=== PATIENT | female | born 1965 | race Two or more races ===

== ENCOUNTER 2024-09-29 11:57 | Inpatient (IN) | payer OTHER, SELFPAY ==
[~2024-09-29] VITALS: Ht 154.9 cm; Wt 74.3 kg
[2024-09-29] MEDS: SODIUM CHLORIDE 0.9% 2,000 ML IV ONE (12:15)
--- NOTE | 2024-09-29 12:18 | ED.PDOC ---
HPI Comments 59 y.o female presents to the ED for a chief complaint of upper abdominal pain radiating ton the mid-chest, nausea and diarrhea that started 2 days ago. Patient reports pain has now radiated to her abdomen and back, states it is constant and has no alleviating factors. Patient describes diarrhea and some emesis as clear and watery. Patient uses marijuana as her bedtime routine to sleep daily and additionally mentions taking [place] for pain today but had no relief. Patient denies any dysuria, bloody stool, SOB, or recent antibiotic use. Patient has a history of multiple abdominal surgeries which include intestinal blockage, appendectomy, cholecystectomy, and hernia repair x5. Chief Complaint: Chest Pain Time Seen by MD: 12:12 Reviewed Notes: Nurses Notes, Medications, Allergies Allergies: Coded Allergies: NO KNOWN ALLERGIES (Unverified , 09/29/24) Information Source: Patient Mode of Arrival: Ambulatory Severity: Moderate Timing: Days (2) Duration: Since onset Location: Substernal Radiation: Abdomen, Back Quality: Sharp Onset: At Rest PE Risk Factors: None History of: Similar pain in past Modifying Factors: Nothing Associated Signs and Symptoms: Abdominal Pain, N/V, Back Pain Past Medical History Past Medical History (Other): Bowel obstruction Surgical History: Appendectomy, Cholecystectomy, Hernia Repair (5) Surgical History (Other): Surgery for bowel obstruction CARGO INSPECTOR 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: No Pertinent 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 INSPECTOR History Family History Family History: Reviewed,noncontributory to illness Social History Smoker: Non-Smoker Alcohol: Denies ETOH Use Drugs: Marijuana Lives In: Home Constitutional: reports: sweats; denies: chills, diaphoresis, fatigue, fever, malaise, weakness, others EENTM: denies: blurred vision, double vision, ear bleeding, ear discharge, ear drainage, ear pain, ear ringing, eye pain, eye redness, hearing loss, mouth pain, mouth swelling, nasal discharge, nose bleeding, nose congestion, nose pain, photophobia, tearing, throat pain, throat swelling, voice changes, others Respiratory: denies: cough, hemoptysis, orthopnea, SOB at rest, shortness of breath, SOB with excertion, stridor, wheezing, others Cardiovascular: reports: chest pain; denies: dizzy spells, diaphoresis, Dyspnea on exertion, edema, irregular heart beat, left arm pain, lightheadedness, palpitations, PND, syncope, others Gastrointestinal: reports: abdominal pain, diarrhea, nausea; denies: abdomen distended, blood streaked bowels, constipated, dysphagia, difficulty swallowing, hematemesis, melena, poor appetite, poor fluid intake, rectal bleeding, rectal pain, vomiting, others Genitourinary: denies: abnormal vagina bleeding, burning, dyspareunia, dysuria, flank pain, frequency, hematuria, incontinence, pain, , vagina discharge, urgency, others Neurological: denies: dizziness, fainting, headache, left sided numbness, left sided weakness, numbness, paresthesia, pre-existing deficit, right sided numbness, right sided weakness, seizure, speech problems, tingling, tremors, weakness, others Musculoskeletal: reports: back pain; denies: gout, joint pain, joint swelling, muscle pain, muscle stiffness, neck pain, others Integumetry: denies: bruises, change in color, change in hair/nails, dryness, laceration, lesions, lumps, rash, wounds, others Allergic/Immunocompromised: denies: Difficulty Healing, Frequent Infections, Hives, Itching, others Hematologic/Lymphatic: denies: anemia, blood clots, easy bleeding, easy bruising, swollen glands, others Endocrine: denies: excessive hunger, excessive sweating, excessive thirst, excessive urination, flushing, intolerance to cold, intolerance to heat, unexplained weight gain, unexplained weight loss, others Psychiatric: denies: anxiety, bipolar disorder, depression, hopeless, panic disorder, schizophrenia, sleepless, suicidal, others All Other Systems: Reviewed and Negative Physical Exam General Appearance: Moderate Distress HEENT: Other (Pupils and face symmetric. Dry mucous membranes.) Neck: Full Range of Motion, Normal Inspection Respiratory: Lungs Clear, No Accessory Muscle Use, No Respiratory Distress, Normal Breath Sounds Cardiovascular: Bradycardia, No Edema, No JVD Breast Exam: Deferred Gastrointestinal: Diffuse, Soft, Tenderness, Other (Actively vomiting) Genitalia: Deferred Pelvic: Deferred Rectal: Deferred Extremities: Normal inspection, Normal range of motion, Non-tender, No pedal edema Neurologic: Alert (Oriented x4), Normal Affect, Normal Mood, Other (Ambulatory.) Cerebellar Function: NOT DONE Reflexes: NOT DONE Skin: Dry, Normal Color, Warm Lymphatic: NOT DONE EKG EKG : Comments Sinus bradycardia, rate 45, normal intervals, normal axis, normal QRS, nonspecific T change. Was a procedure done? Was a procedure done?: No CP Differential Dx Differential Diagnosis: Other (Bowel obstruction, ileus, colitis, diverticulitis, UTI, gastroenteritis, gastritis, ischemic bowel, among others) Differential Diagnosis: N/A Differential Diagnosis: Angina, Aortic dissection, Chest Wall Pain, Costochondritis, Esophageal reflux/spasm, Gastritis, Myocardial Infarction, Pericarditis X-Ray, Labs, Meds, VS Vital Signs Date Time Temp Pulse Resp B/P (MAP) Pulse Ox O2 Delivery O2 Flow Rate FiO2 09/29/24 19:25 98.6 54 13 118/69 (85) 100 98.6 09/29/24 18:22 44 16 118/69 (85) 99 09/29/24 16:00 44 16 121/67 (85) 100 09/29/24 16:00 44 09/29/24 15:10 78 20 111/60 09/29/24 14:57 60 15 122/72 (89) 100 09/29/24 14:26 53 12 99 Nasal Cannula* 2 28 09/29/24 12:48 54 16 145/69 09/29/24 12:23 97.6 51 24 150/78 (102) 100 97.6 09/29/24 12:22 50 26 145/69 (94) 100 09/29/24 12:00 45 Lab Test 09/29/24 17:05 09/29/24 14:28 09/29/24 13:20 09/29/24 12:36 Range/Units Urine Color Yellow Yellow Urine Clarity Clear Clear Urine pH 6.0 5.0-9.0 Urine Specific [place] 1.015 1.001-1.035 Urine Protein Trace H Negative Urine Ketones Negative Negative Urine Blood Negative Negative /uL Urine Nitrite Negative Negative Urine Bilirubin Negative Negative Urine Urobilinogen Normal Negative mg/dL Urine Leukocyte Esterase Negative Negative /uL Urine RBC 1 0 - 4 /hpf Urine Microscopic WBC 1 0-5 /HPF Urine Squamous Epithelial Cells Few <5 /hpf Urine Bacteria Few H None Seen /hpf Urine Mucus Few None Seen Urine Glucose Normal Normal mg/dL Lactic Acid Level 0.7 2.3 *H 0.4-2.0 mmol/L Troponin I High Sensitivity < 3 L </=34 ng/L Test 09/29/24 12:06 Range/Units White Blood Count 3.9 L 4.4-10.8 10^3/uL Red Blood Count 4.77 4.0-5.20 10^6/uL Hemoglobin 14.9 12.2-16.2 g/dL Hematocrit 42.4 36.0-46.0 % Mean Corpuscular Volume 88.9 80.0-100.0 fL Mean Corpuscular Hemoglobin 31.2 28.0-32.0 pg Mean Corpuscular Hemoglobin Concent 35.1 32.0-36.0 g/dL Red Cell Distribution Width 13.4 11.8-14.3 % Platelet Count 260 140-450 10^3/uL Mean Platelet Volume 8.8 6.9-10.8 fL Neutrophils (%) (Auto) 53.4 37.0-80.0 % Lymphocytes (%) (Auto) 34.8 10.0-50.0 % Monocytes (%) (Auto) 11.1 0.0-12.0 % Eosinophils (%) (Auto) 0.1 0.0-7.0 % Basophils (%) (Auto) 0.6 0.0-2.0 % Neutrophils # (Auto) 2.1 1.6-8.6 10 ^3/uL Lymphocytes # (Auto) 1.4 0.4-5.4 10 ^3/uL Monocytes # (Auto) 0.4 0-1.3 10 ^3/uL Eosinophils # (Auto) 0 0-0.8 10 ^3/uL Basophils # (Auto) 0 0-0.2 10 ^3/uL Nucleated Red Blood Cells 0.3 % Sodium Level 143 136-145 mmol/L Potassium Level 3.0 L 3.5-5.1 mmol/L Chloride Level 108 H 98-107 mmol/L Carbon Dioxide Level 18 L 20-31 mmol/L Anion Gap 17 H 5-15 Blood Urea Nitrogen 16 9-23 mg/dL Creatinine 0.89 0.550-1.02 mg/dL Glomerular Filtration Rate Calc 75 >90 mL/min BUN/Creatinine Ratio 18.0 10.0-20.0 Serum Glucose 121 H 74-106 mg/dL Calcium Level 10.5 H 8.7-10.4 mg/dL Total Bilirubin 0.6 0.2-1.0 mg/dL Aspartate Amino Transferase (AST) 84 H 13-40 U/L Alanine Aminotransferase (ALT) 31 7-40 U/L Alkaline Phosphatase 48 46-116 U/L Troponin I High Sensitivity < 3 L </=34 ng/L B-Type Natriuretic Peptide 33.57 0-100 pg/mL Total Protein 7.4 5.7-8.2 g/dL Albumin 5.0 H 3.2-4.8 g/dL Lipase 34 12-53 U/L Current Medications Medications (Trade) Dose Ordered Sig/Yulia Route Start Time Stop Time Status Last Admin Morphine Sulfate 4 mg ONCE ONCE IV 09/29/24 12:15 09/29/24 12:16 DC 09/29/24 12:48 Ondansetron HCl (Zofran) 4 mg ONCE ONCE IV 09/29/24 12:15 09/29/24 12:16 DC 09/29/24 12:48 Pantoprazole Sodium (Protonix) 40 mg ONCE ONCE IV 09/29/24 12:15 09/29/24 12:16 DC 09/29/24 12:48 Sodium Chloride 2,000 ml @ 1,000 mls/hr Q2H ONCE IV 09/29/24 12:15 09/29/24 14:14 DC 09/29/24 12:15 Potassium Bicarbonate (Klor-Con/Ef) 50 meq ONCE ONCE PO 09/29/24 14:30 09/29/24 14:32 DC 09/29/24 14:52 Ceftriaxone Sodium 50 ml @ 100 mls/hr ONCE ONCE IV 09/29/24 16:30 09/29/24 16:59 DC 09/29/24 16:43 Metronidazole 100 ml @ 100 mls/hr ONCE ONCE IV 09/29/24 16:30 09/29/24 17:29 DC 09/29/24 17:20 PROCEDURE(s): ABPL - CT AB PEL WO CON-NO ORAL OR IV REASON: abd pain, n/v, watery stool, h/o sbo ORDER NUMBER(s): [id number], ACCESSION NUMBER(s): [id number] CT CT AB PEL WO CON-NO ORAL OR IV INDICATION: abd pain, n/v, watery stool, h/o sbo EXAM DATE: 09/29/2024 01:02 PM COMPARISON: None RADIATION DOSE: CTDIvol: 9 mGy, DLP: 435 mGy*cm PROCEDURE: Helical CT images were obtained of the abdomen and pelvis without IV contrast Sagittal and coronal reconstructions are provided. ORAL CONTRAST: None. ADDITIONAL IMAGES / REFORMATS: None All CT scans at this medical facility are p erformed using dose modulation techniques as appropriate to a performed exam including the following: Automated exposure control was utilized; adjustment of the MA and/or KV according to patient size; and use of iterative reconstruction technique. FINDINGS: LUNG BASE: Normal. LIVER: Normal. GALLBLADDER AND BILIARY TREE: Cholecystectomy clips are seen. No intra- or extrahepatic biliary ductal dilation. PANCREAS: Normal. SPLEEN: Normal. BOWEL: There is a stomach containing hiatal hernia. Liquid filled colon Can be seen with diarrhea. The appendix is not visualized. ADRENALS: Normal. KIDNEYS AND URETER: Tiny non obstructive bilateral kidney stones are seen. BLADDER: Normal. REPRODUCTIVE ORGANS: The endometrium is thickened to 3.8 cm. Consider a pelvic ultrasound to rule out malignancy. LYMPH NODES:No lymphadenopathy. PERITONEUM: No ascites or free air. No other fluid collection. VESSELS: Scattered atherosclerotic calcifications are noted. RETROPERITONEUM: Normal. ABDOMINAL WALL: Central abdominal wall hernia repair with mesh material is seen. BONES: Scattered osseous degenerative changes are noted. IMPRESSION: No acute intraabdominal abnormality. Liquid filled colon can be seen with diarrhea. The endometrium is thickened to 3.8 cm. Consider a pelvic ultrasound to rule out malignancy. X-Ray, Labs, Meds, VS Comment 59-year-old female with a history of bowel obstruction complaining of diffuse abdominal pain, nausea, vomiting and watery stool Vitals remarkable for heart rate 45, respiratory rate 26, BP 145/69 Exam remarkable for diffuse abdominal tenderness, active vomiting Rhythm strip independently interpreted by me: Sinus bradycardia, rate 45, no ectopy. CT abdomen and pelvis: IMPRESSION: No acute intraabdominal abnormality. Liquid filled colon can be seen with diarrhea. The endometrium is thickened to 3.8 cm. Consider a pelvic ultrasound to rule out malignancy. CBC unremarkable, CMP remarkable for potassium 3, chloride 108, CO2 18, lactic 2.3, BNP and troponin negative, lipase normal Patient treated with the following in the ED: 2 L 0.9 normal saline IV bolus, Zofran 4 mg IV, morphine 4 mg IV, Protonix 40 mg IV, effervescent potassium 50 mEq p.o., Rocephin 1 g IV, Flagyl 500 mg IV On re-evaluation, patient states abd pain and nausea symptoms have somewhat improved but are still present. Chest pain has resolved. Vitals were stable. Plan is to admit the patient for pain and emesis control and possible GI evaluation Time of 1ST Reevaluation: 12:30 Reevaluation 1ST: Improved Patient Education/Counseling: Diagnosis, Treatment, Prognosis Family Education/Counseling: No Family Present Sepsis Sepsis Reasesment Focused Exam Orders: Laboratory Tests 09/29/24 12:36: Lactic Acid Level 2.3 09/29/24 14:28: Lactic Acid Level 0.7 Departure 1 Departure Time of Disposition: 15:45 Impression: Primary Impression: Abdominal pain Qualified Codes: R10.9 - Unspecified abdominal pain Additional Impressions: Vomiting and diarrhea Electrolyte imbalance Disposition: ADMITTED INPATIENT Admit to: Med Surg Condition: Fair Critical Care Note Critical Care Time?: No Stability Stability form required: No Heart Score Heart Score: Heart Score Response (Comments) Value History Slightly Suspicious 0 EKG Repolarization Disturb 1 Age 45-64 1 Risk Factors 1 or 2 risk factors 1 Troponin Normal limit 0 Total 3 I personally scribed for JOSE DOUGLAS MD ([email or web address]) on 09/29/24 at 12:18. Electronically submitted by Silvia Maurer ([facility]). I personally scribed for JOSE DOUGLAS MD ([email or web address]) on 09/29/24 at 13:54. Electronically submitted by Silvia Maurer ([facility]). JOSE DOUGLAS MD Sep 29, 2024 12:18
[2024-09-29 12:20] LABS: Basophils # (auto) 0 10 ^3/uL (0-0.2); Basophils % (auto) 0.6 % (0.0-2.0); Eosinophils # (auto) 0 10 ^3/uL (0-0.8); Eosinophils % (auto) 0.1 % (0.0-7.0); Hematocrit 42.4 % (36.0-46.0); Hemoglobin 14.9 g/dL (12.2-16.2); Lymphocytes # (auto) 1.4 10 ^3/uL (0.4-5.4); Lymphocytes % (auto) 34.8 % (10.0-50.0); Mean Corpuscular Hemoglobin 31.2 pg (28.0-32.0); Mean Corpuscular Hgb Conc. 35.1 g/dL (32.0-36.0); Mean Corpuscular Volume 88.9 fL (80.0-100.0); Monocytes # (auto) 0.4 10 ^3/uL (0-1.3); Monocytes % (auto) 11.1 % (0.0-12.0); Neutrophils # (auto) 2.1 10 ^3/uL (1.6-8.6); Neutrophils % (auto) 53.4 % (37.0-80.0); Nucleated Red Blood Cells % 0.3 %; Platelet Count (auto) 260 10^3/uL (140-450); Red Blood Cells 4.77 10^6/uL (4.0-5.20); Red Cell Distribution Width 13.4 % (11.8-14.3); White Blood Cell 3.9 10^3/uL (4.4-10.8)
--- NOTE | 2024-09-29 12:35 | ECG ---
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
[2024-09-29] MEDS: PANTOPRAZOLE 40 MG/10 ML VIAL INJ IV ONE (12:48)
[2024-09-29] MEDS: MORPHINE SULFATE 4 MG/ML SYR/VIAL IV ONE (12:48)
[2024-09-29] MEDS: ONDANSETRON HCL 4 MG/2 ML VIAL IV ONE (12:48)
[2024-09-29 13:07] LABS: Lactic Acid w/Reflex 2.3 mmol/L (0.4-2.0)
[2024-09-29 13:35] LABS: Alanine Aminotransferase 31 U/L (7-40); Alkaline Phosphatase 48 U/L (46-116); Anion Gap 17 (5-15); Blood Urea Nitrogen 16 mg/dL (9-23); Sodium 143 mmol/L (136-145); Total Protein 7.4 g/dL (5.7-8.2)
[2024-09-29 13:36] LABS: Aspartate Aminotransferase 84 U/L (13-40); Bilirubin, Total 0.6 mg/dL (0.2-1.0); Calcium 10.5 mg/dL (8.7-10.4); Carbon Dioxide 18 mmol/L (20-31); Chloride 108 mmol/L (98-107); Glucose 121 mg/dL (74-106)
--- NOTE | 2024-09-29 13:38 | DVH ---
CT CT AB PEL WO CON-NO ORAL OR IV INDICATION: abd pain, n/v, watery stool, h/o sbo EXAM DATE: 09/29/2024 01:02 PM COMPARISON: None RADIATION DOSE: CTDIvol: 9 mGy, DLP: 435 mGy*cm PROCEDURE: Helical CT images were obtained of the abdomen and pelvis without IV contrast Sagittal and coronal reconstructions are provided. ORAL CONTRAST: None. ADDITIONAL IMAGES / REFORMATS: None All C T scans at this medical facility are performed using dose modulation techniques as appropriate to a p erformed exam including the following: Automated exposure control was utilized; adjustment of the MA and/or KV according to patient size; and use of iterative reconstruction technique. FINDINGS: LUNG BASE: Normal. LIVER: Normal. GALLBLADDER AND BILIARY TREE: Cholecystectomy clips are seen. No intra- or extrahepatic biliary ducta l dilation. PANCREAS: Normal. SPLEEN: Normal. BOWEL: There is a stomach containing hiatal hernia. Liquid filled colon Can be seen with diarrhea. Th e appendix is not visualized. ADRENALS: Normal. KIDNEYS AND URETER: Tiny non obstructive bilateral kidney stones are seen. BLADDER: Normal. REPRODUCTIVE ORGANS: The endometrium is thickened to 3.8 cm. Consider a pelvic ultrasound to rule out malignancy. LYMPH NODES:No lymphadenopathy. PERITONEUM: No ascites or free air. No other fluid collection. VESSELS: Scattered atherosclerotic calcifications are noted. RETROPERITONEUM: Normal. ABDOMINAL WALL: Central abdominal wall hernia repair with mesh material is seen. BONES: Scattered osseous degenerative changes are noted. IMPRESSION: No acute intraabdominal abnormality. Liquid filled colon can be seen with diarrhea. The endometrium is thickened to 3.8 cm. Consider a pelvic ultrasound to rule out malignancy.
[2024-09-29 14:26] VITALS: PULSE 53; RESP 12; O2SAT 99
[2024-09-29] MEDS: POTASSIUM EFFERVESENT TAB 25 MEQ PO ONE (14:52)
[2024-09-29] MEDS: cefTRIAXone 1GM/50ML D5W 50 ML IV ONE (16:43)
[2024-09-29] MEDS: metroNIDAZOLE 500MG/100ML 100 ML IV ONE (17:20)
[2024-09-29 17:40] LABS: Urine Bacteria FEW /hpf (None Seen); Urine Blood Negative /uL (Negative); Urine Clarity Clear (Clear); Urine Color Yellow (Yellow); Urine Mucus FEW (None Seen); Urine Protein, UAD TRACE (Negative); Urine Specific Gravity 1.015 (1.001-1.035); Urine Squamous Epithelial Cell FEW /hpf (<5); Urine Urobilinogen Normal (Negative); Urine WBC 1 /HPF (0-5)
[2024-09-29] MEDS ORDERED: MORPHINE SULFATE INJ 2 MG/ml SYRG IV PRN (19:30)
[2024-09-29] MEDS ORDERED: HYDROcodone-ACET 5/325MG TAB PO PRN (19:30)
[2024-09-29] MEDS: metroNIDAZOLE 500MG/100ML 100 ML IV SCH (23:00)
[2024-09-29] MEDS: ONDANSETRON HCL 4 MG/2 ML VIAL IV PRN (23:00)
[2024-09-29] MEDS: ACETAMINOPHEN 325 MG TAB PO PRN (23:31)
[2024-09-30] VITALS (9 sets, daily range): BP systolic 121–134; BP diastolic 67–80; PULSE 46–52; RESP 15–19; TEMP 97.6–98.8; O2SAT 95–100
--- NOTE | 2024-09-30 04:36 | DVHHP2 ---
History of Present Illness Reason for Visit: Abdominal pain History of Present Illness 59-year-old female presents for evaluation of abdominal pain. Patient reports a two day history of epigastric abdominal pain with associated nausea and diarrhea. Reports occasional chills. Denies dysuria or hematuria. Past Medical History Hypertension Past Surgical History Cholecystectomy, appendectomy, hernia repair Family History Noncontributory Smoke: No ALCOHOL: none Drugs: Marijuana Review of Systems Review of Systems Review of systems are currently negative otherwise addressed in HPI. Allergies: Coded Allergies: NO KNOWN ALLERGIES (Unverified , 09/29/24) Medications Current Medications Medications Dose Ordered Sig/Yulia Route Start Time Stop Time Status Last Admin Dose Admin Metronidazole 100 ml @ 100 mls/hr Q8HR IV 09/29/24 22:00 09/29/24 23:00 100 MLS/HR Pantoprazole Sodium 40 mg DAILY IV 09/30/24 10:00 Acetaminophen/ Hydrocodone Bitart 1 tab Q4HP PRN PO 09/29/24 19:30 Ondansetron HCl 4 mg Q4HP PRN IV 09/29/24 19:30 09/29/24 23:00 4 MG Acetaminophen 650 mg Q6HP PRN PO 09/29/24 19:30 09/29/24 23:31 650 MG Morphine Sulfate 2 mg Q6HPRN PRN IV 09/29/24 19:30 Exam Vital Signs Vital Signs Date Time Temp Pulse Resp B/P (MAP) Pulse Ox O2 Delivery O2 Flow Rate FiO2 09/30/24 01:39 Room Air* 0 21 09/30/24 01:39 97.6 52 18 123/71 (88) 97 97.6 Exam Gen: 59-year-old female in mild distress Skin: Warm, dry, normal color and texture, no rash. HEENT: Normocephalic atraumatic, mucous membranes moist and pink. Neck: Cervical and supraclavicular nodes normal without enlargement, trachea is midline, thyroid gland is normal without masses. Pulmonary: Clear to auscultation and percussion bilaterally. Cardiac: Regular rate and rhythm. No murmur Abdomen: Soft, nontender, nondistended, bowel sounds present all 4 quadrants, no guarding, no rigidity, no organomegaly. Extremities: No cyanosis, clubbing, no edema Neuro: Cranial nerves II through XII grossly intact, normal affect and speech, no focal motor deficits. Labs/Xrays ORDERING PHYSICIAN: JOSE DOUGLAS MD PROCEDURE(s): ABPL - CT AB PEL WO CON-NO ORAL OR IV REASON: abd pain, n/v, watery stool, h/o sbo ORDER NUMBER(s): [id number], ACCESSION NUMBER(s): [id number] CT CT AB PEL WO CON-NO ORAL OR IV INDICATION: abd pain, n/v, watery stool, h/o sbo EXAM DATE: 09/29/2024 01:02 PM COMPARISON: None RADIATION DOSE: CTDIvol: 9 mGy, DLP: 435 mGy*cm PROCEDURE: Helical CT images were obtained of the abdomen and pelvis without IV contrast Sagittal and coronal reconstructions are provided. ORAL CONTRAST: None. ADDITIONAL IMAGES / REFORMATS: None All CT scans at this medical facility are p erformed using dose modulation techniques as appropriate to a performed exam including the following: Automated exposure control was utilized; adjustment of the MA and/or KV according to patient size; and use of iterative reconstruction technique. FINDINGS: LUNG BASE: Normal. LIVER: Normal. GALLBLADDER AND BILIARY TREE: Cholecystectomy clips are seen. No intra- or extrahepatic biliary ductal dilation. PANCREAS: Normal. SPLEEN: Normal. BOWEL: There is a stomach containing hiatal hernia. Liquid filled colon Can be seen with diarrhea. The appendix is not visualized. ADRENALS: Normal. KIDNEYS AND URETER: Tiny non obstructive bilateral kidney stones are seen. BLADDER: Normal. REPRODUCTIVE ORGANS: The endometrium is thickened to 3.8 cm. Consider a pelvic ultrasound to rule out malignancy. LYMPH NODES:No lymphadenopathy. PERITONEUM: No ascites or free air. No other fluid collection. VESSELS: Scattered atherosclerotic calcifications are noted. RETROPERITONEUM: Normal. ABDOMINAL WALL: Central abdominal wall hernia repair with mesh material is seen. BONES: Scattered osseous degenerative changes are noted. IMPRESSION: No acute intraabdominal abnormality. Liquid filled colon can be seen with diarrhea. The endometrium is thickened to 3.8 cm. Consider a pelvic ultrasound to rule out malignancy. Labs Test 09/29/24 17:05 09/29/24 14:28 09/29/24 13:20 09/29/24 12:06 Range/Units Urine Color Yellow Yellow Urine Clarity Clear Clear Urine pH 6.0 5.0-9.0 Urine Specific [place] 1.015 1.001-1.035 Urine Protein Trace H Negative Urine Ketones Negative Negative Urine Blood Negative Negative /uL Urine Nitrite Negative Negative Urine Bilirubin Negative Negative Urine Urobilinogen Normal Negative mg/dL Urine Leukocyte Esterase Negative Negative /uL Urine RBC 1 0 - 4 /hpf Urine Microscopic WBC 1 0-5 /HPF Urine Squamous Epithelial Cells Few <5 /hpf Urine Bacteria Few H None Seen /hpf Urine Mucus Few None Seen Urine Glucose Normal Normal mg/dL Lactic Acid Level 0.7 0.4-2.0 mmol/L Troponin I High Sensitivity < 3 L </=34 ng/L White Blood Count 3.9 L 4.4-10.8 10^3/uL Red Blood Count 4.77 4.0-5.20 10^6/uL Hemoglobin 14.9 12.2-16.2 g/dL Hematocrit 42.4 36.0-46.0 % Mean Corpuscular Volume 88.9 80.0-100.0 fL Mean Corpuscular Hemoglobin 31.2 28.0-32.0 pg Mean Corpuscular Hemoglobin Concent 35.1 32.0-36.0 g/dL Red Cell Distribution Width 13.4 11.8-14.3 % Platelet Count 260 140-450 10^3/uL Mean Platelet Volume 8.8 6.9-10.8 fL Neutrophils (%) (Auto) 53.4 37.0-80.0 % Lymphocytes (%) (Auto) 34.8 10.0-50.0 % Monocytes (%) (Auto) 11.1 0.0-12.0 % Eosinophils (%) (Auto) 0.1 0.0-7.0 % Basophils (%) (Auto) 0.6 0.0-2.0 % Neutrophils # (Auto) 2.1 1.6-8.6 10 ^3/uL Lymphocytes # (Auto) 1.4 0.4-5.4 10 ^3/uL Monocytes # (Auto) 0.4 0-1.3 10 ^3/uL Eosinophils # (Auto) 0 0-0.8 10 ^3/uL Basophils # (Auto) 0 0-0.2 10 ^3/uL Nucleated Red Blood Cells 0.3 % Sodium Level 143 136-145 mmol/L Potassium Level 3.0 L 3.5-5.1 mmol/L Chloride Level 108 H 98-107 mmol/L Carbon Dioxide Level 18 L 20-31 mmol/L Anion Gap 17 H 5-15 Blood Urea Nitrogen 16 9-23 mg/dL Creatinine 0.89 0.550-1.02 mg/dL Glomerular Filtration Rate Calc 75 >90 mL/min BUN/Creatinine Ratio 18.0 10.0-20.0 Serum Glucose 121 H 74-106 mg/dL Calcium Level 10.5 H 8.7-10.4 mg/dL Total Bilirubin 0.6 0.2-1.0 mg/dL Aspartate Amino Transferase (AST) 84 H 13-40 U/L Alanine Aminotransferase (ALT) 31 7-40 U/L Alkaline Phosphatase 48 46-116 U/L B-Type Natriuretic Peptide 33.57 0-100 pg/mL Total Protein 7.4 5.7-8.2 g/dL Albumin 5.0 H 3.2-4.8 g/dL Lipase 34 12-53 U/L Assessment/Plan Assessment/Plan Assessment Acute abdominal pain Questionable gastroenteritis Electrolyte imbalance Plan Admit the patient to [facility] to the hospitalist [place] Clear liquid diet GI consult Pain management Continue treatment per orders. 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 CONS 09/29/24 Transmitted 19:27 Basic Metabolic Panel LAB 09/30/24 Logged 04:00 Admit ADMIT 09/29/24 Transmitted 19:27 Hydrocodone-Acet PHA 09/29/24 In Process 5/325mg Tab ([place] 19:30 Ondansetron Hcl PHA 09/29/24 In Process (Zofran) 19:30 Complete Blood Count LAB 09/30/24 Logged 04:00 Condition: Stable GRAHAM 09/29/24 In Process 19:27 Acetaminophen Tablet PHA 09/29/24 In Process (Tylenol Tablet) 19:30 Clear Liq Diet DIET 09/30/24 Transmitted Breakfast Bedrest With Bathroom GRAHAM 09/29/24 In Process Privileg 19:27 Morphine Sulfate PHA 09/29/24 In Process Injection 19:30 Stool Bacterial DEXTER 09/29/24 Logged Culture 19:27 Date of Service: Sep 29, 2024 Billing Provider: KOREY SEPULVEDA Common Visit Codes: [id number] INP/OBS CARE (MOD) KOREY SEPULVEDA Sep 30, 2024 04:36
[2024-09-30 06:51] LABS: Basophils # (auto) 0 10 ^3/uL (0-0.2); Basophils % (auto) 0.4 % (0.0-2.0); Eosinophils # (auto) 0 10 ^3/uL (0-0.8); Eosinophils % (auto) 0.1 % (0.0-7.0); Hematocrit 40.8 % (36.0-46.0); Hemoglobin 14.1 g/dL (12.2-16.2); Lymphocytes # (auto) 0.6 10 ^3/uL (0.4-5.4); Lymphocytes % (auto) 23.4 % (10.0-50.0); Mean Corpuscular Hgb Conc. 34.5 g/dL (32.0-36.0); Mean Corpuscular Volume 89.8 fL (80.0-100.0); Monocytes # (auto) 0.3 10 ^3/uL (0-1.3); Monocytes % (auto) 12.5 % (0.0-12.0); Neutrophils # (auto) 1.6 10 ^3/uL (1.6-8.6); Neutrophils % (auto) 63.6 % (37.0-80.0); Nucleated Red Blood Cells % 0.1 %; Platelet Count (auto) 202 10^3/uL (140-450); Red Blood Cells 4.55 10^6/uL (4.0-5.20); Red Cell Distribution Width 13.4 % (11.8-14.3); White Blood Cell 2.5 10^3/uL (4.4-10.8)
[2024-09-30 07:03] LABS: Potassium 3.5 mmol/L (3.5-5.1); Sodium 143 mmol/L (136-145)
[2024-09-30 07:04] LABS: Anion Gap 10 (5-15); Calcium 9.8 mg/dL (8.7-10.4); Carbon Dioxide 26 mmol/L (20-31)
[2024-09-30 07:07] LABS: Chloride 107 mmol/L (98-107)
[2024-09-30 07:09] LABS: BUN/Creatinine Ratio 10.8 (10.0-20.0); Blood Urea Nitrogen 10 mg/dL (9-23); Glucose 97 mg/dL (74-106)
[2024-09-30] MEDS: PANTOPRAZOLE 40 MG/10 ML VIAL INJ IV SCH (10:01)
--- NOTE | 2024-09-30 11:04 | DVHPN2 ---
Progress Note Date Seen: Sep 30, 2024 Medical Necessity Reason Pt with a Central, PICC or Fol: No Subjective Patient reports: No new complaints Review of Systems: HEENT:Normal, CVS:Normal, RESPIRATORY:Normal, GI:Normal, :Normal, MSK:Normal, NEURO:Normal Objective vital signs Vital Sign Date Time Temp Pulse Resp B/P (MAP) Pulse Ox O2 Delivery O2 Flow Rate FiO2 09/30/24 05:00 97.7 48 17 134/80 (98) 96 97.7 09/30/24 01:39 Room Air* 0 21 Total Intake and Output 09/29/24 09/29/24 09/30/24 15:00 23:00 07:00 Intake Total 2000 ml 200 ml 400 ml Balance 2000 ml 200 ml 400 ml medications Current Medications Medications Dose Ordered Sig/Yulia Route Start Time Stop Time Status Last Admin Dose Admin Metronidazole 100 ml @ 100 mls/hr Q8HR IV 09/29/24 22:00 09/30/24 05:24 100 MLS/HR Pantoprazole Sodium 40 mg DAILY IV 09/30/24 10:00 09/30/24 10:01 40 MG Acetaminophen/ Hydrocodone Bitart 1 tab Q4HP PRN PO 09/29/24 19:30 Ondansetron HCl 4 mg Q4HP PRN IV 09/29/24 19:30 09/30/24 05:32 4 MG Acetaminophen 650 mg Q6HP PRN PO 09/29/24 19:30 09/29/24 23:31 650 MG Morphine Sulfate 2 mg Q6HPRN PRN IV 09/29/24 19:30 Examination: GENERAL:Normal, HEENT:Normal, NECK:Normal, LUNGS:Normal, CVS:Normal, ABDOMEN:Normal, MSK:Normal, SKIN:Normal, NEURO:Normal, :Normal laboratory and microbiology Laboratory Tests 09/30/24 06:19 Test 09/30/24 06:19 Range/Units Serum Glucose 97 74-106 mg/dL Problem List/Assessment/Plan Problem List/Assessment/Plan #1 diarrhea: advance diet #2 obesity #3 htn #4 endometrial thickening: pelvic usg #5 hypokalemia: replaced advance care planning- full code- time spent 18 mins Plan discussed with: Patient My Orders My Orders Orders - KOREY HERNANDEZ MD Procedure Category Date Status Time Full Liq Diet DIET 09/30/24 Transmitted Lunch Date of Service: Sep 30, 2024 Billing Provider: KOREY HERNANDEZ MD Common Visit Codes: [id number] INP/OBS CARE(HIGH) Secondary Visit Codes: [id number] CARE PLAN 30 MINUTES KOREY HERNANDEZ MD Sep 30, 2024 11:04
[2024-09-30] MEDS: SODIUM CHLORIDE 0.9% 1,000 ML IV SCH (12:03)
--- NOTE | 2024-09-30 13:05 | DVH ---
INDICATION: endometrial thickening TECHNIQUE: Multiple real-time grayscale transabdominal and transvaginal sonographic images along wit h color and duplex Doppler of the uterus and ovaries were obtained. COMPARISON: None FINDINGS: The uterus measures 8.1 x 4.3 x 5.7 cm. Small amount of fluid and debris in the endometr ial canal. Bilateral ovaries are not well visualized due to obscuration from bowel gas. IMPRESSION: Small amount of fluid and debris in the endometrial canal. Correlate with gynecologic exam.
--- NOTE | 2024-09-30 18:13 | DVHINCON2 ---
Date of service: Sep 30, [address] Simental Reason for Consultation Abdominal pain nausea diarrhea History of Present Illness This 59-year-old female presented to the emergency room with complaints of abdominal pain radiating to the chest as well as nausea and diarrhea started about prior to admission No hematemesis no melena Patient has history of marijuana routinely sleep Some little diarrhea no hematemesis no melena Past Medical History Bowel obstruction for which she had surgery appendectomy cholecystectomy and hernia repair 5 times Past Surgical History Appendectomy cholecystectomy hernia repair Family History: Patient reports no known family medical history. Family History Noncontributory Social History Denies smoking or drinking Allergies: Coded Allergies: NO KNOWN ALLERGIES (Unverified , 09/29/24) Current Medications Current Medications Medications (Trade) Dose Ordered Sig/Yulai Route PRN Reason Start Time Stop Time Status Last Admin Metronidazole 100 ml @ 100 mls/hr Q8HR IV 09/29/24 22:00 09/30/24 11:02 DC 09/30/24 05:24 Pantoprazole Sodium (Protonix) 40 mg DAILY IV 09/30/24 10:00 09/30/24 10:01 Acetaminophen/ Hydrocodone Bitart ([place] 5/325MG Tab) 1 tab Q4HP PRN PO MODERATE PAIN (4-6 PAIN SCALE) 09/29/24 19:30 Ondansetron HCl (Zofran) 4 mg Q4HP PRN IV NAUSEA / VOMITING 09/29/24 19:30 09/30/24 05:32 Acetaminophen (Tylenol Tablet) 650 mg Q6HP PRN PO PAIN SCALE 1-3 OR TEMP>100.4 09/29/24 19:30 09/29/24 23:31 Morphine Sulfate 2 mg Q6HPRN PRN IV SEVERE PAIN (7-10 PAIN SCALE) 09/29/24 19:30 Sodium Chloride 1,000 ml @ 60 mls/hr [id number] IV 09/30/24 11:00 09/30/24 12:03 Review of Systems Noncontributory Vital Signs Vital Signs Date Time Temp Pulse Resp B/P (MAP) Pulse Ox O2 Delivery O2 Flow Rate FiO2 09/30/24 17:00 98.8 48 16 134/72 (92) 97 98.8 09/30/24 08:00 Room Air* 0 21 Physical Exam Moderately built and nourished female in no acute distress Vitals stable Lungs are clear Vascular unremarkable Abdomen is soft mild tenderness in the epigastrium no rigidity no guarding no masses Bowel sounds normal Extremities no edema Neuro intact Labs/Diagnostic Data Labs Test 09/30/24 06:19 09/29/24 17:05 09/29/24 14:28 09/29/24 13:20 Range/Units White Blood Count 2.5 L 4.4-10.8 10^3/uL Red Blood Count 4.55 4.0-5.20 10^6/uL Hemoglobin 14.1 12.2-16.2 g/dL Hematocrit 40.8 36.0-46.0 % Mean Corpuscular Volume 89.8 80.0-100.0 fL Mean Corpuscular Hemoglobin 31.0 28.0-32.0 pg Mean Corpuscular Hemoglobin Concent 34.5 32.0-36.0 g/dL Red Cell Distribution Width 13.4 11.8-14.3 % Platelet Count 202 140-450 10^3/uL Mean Platelet Volume 9.4 6.9-10.8 fL Neutrophils (%) (Auto) 63.6 37.0-80.0 % Lymphocytes (%) (Auto) 23.4 10.0-50.0 % Monocytes (%) (Auto) 12.5 H 0.0-12.0 % Eosinophils (%) (Auto) 0.1 0.0-7.0 % Basophils (%) (Auto) 0.4 0.0-2.0 % Neutrophils # (Auto) 1.6 1.6-8.6 10 ^3/uL Lymphocytes # (Auto) 0.6 0.4-5.4 10 ^3/uL Monocytes # (Auto) 0.3 0-1.3 10 ^3/uL Eosinophils # (Auto) 0 0-0.8 10 ^3/uL Basophils # (Auto) 0 0-0.2 10 ^3/uL Nucleated Red Blood Cells 0.1 % Sodium Level 143 136-145 mmol/L Potassium Level 3.5 3.5-5.1 mmol/L Chloride Level 107 98-107 mmol/L Carbon Dioxide Level 26 20-31 mmol/L Anion Gap 10 5-15 Blood Urea Nitrogen 10 9-23 mg/dL Creatinine 0.93 0.550-1.02 mg/dL Glomerular Filtration Rate Calc 71 >90 mL/min BUN/Creatinine Ratio 10.8 10.0-20.0 Serum Glucose 97 74-106 mg/dL Calcium Level 9.8 8.7-10.4 mg/dL Urine Color Yellow Yellow Urine Clarity Clear Clear Urine pH 6.0 5.0-9.0 Urine Specific [place] 1.015 1.001-1.035 Urine Protein Trace H Negative Urine Ketones Negative Negative Urine Blood Negative Negative /uL Urine Nitrite Negative Negative Urine Bilirubin Negative Negative Urine Urobilinogen Normal Negative mg/dL Urine Leukocyte Esterase Negative Negative /uL Urine RBC 1 0 - 4 /hpf Urine Microscopic WBC 1 0-5 /HPF Urine Squamous Epithelial Cells Few <5 /hpf Urine Bacteria Few H None Seen /hpf Urine Mucus Few None Seen Urine Glucose Normal Normal mg/dL Lactic Acid Level 0.7 0.4-2.0 mmol/L Troponin I High Sensitivity < 3 L </=34 ng/L Test 09/29/24 12:06 Range/Units Total Bilirubin 0.6 0.2-1.0 mg/dL Aspartate Amino Transferase (AST) 84 H 13-40 U/L Alanine Aminotransferase (ALT) 31 7-40 U/L Alkaline Phosphatase 48 46-116 U/L B-Type Natriuretic Peptide 33.57 0-100 pg/mL Total Protein 7.4 5.7-8.2 g/dL Albumin 5.0 H 3.2-4.8 g/dL Lipase 34 12-53 U/L Microbiology Date/Time Source Procedure Growth Status 09/30/24 06:26 Stool Stool Culture - Preliminary Resulted 09/30/24 06:26 Stool Shiga Toxin I & II - Final Resulted 09/29/24 12:36 Blood Blood Culture - Preliminary NO GROWTH AFTER 24 HOURS OF INCUBATION. Resulted Assessment 59-year-old with history of abdominal pains nausea anorexia history of although problems appendectomy cholecystectomy hernia surgery as well as bowel obstruction presenting with nausea vomiting some diarrhea also no hematemesis no melena labs showed that the white count is slightly low 2.5 hemoglobin is normal liver I am showed the liver enzymes showed that the AST slightly high 84 CAT scan of the abdomen showed no acute abnormalities some fluid thick in probably from diarrhea and endometrial thickening Clinical impression abdominal pain nausea and occasional diarrhea possibility of gastroenteritis to be considered other possibility of a colonic or upper GI tract pathology can not be excluded and also has got history of bowel obstruction but no evidence of any bowel obstruction or hernia problems at this time Plan/Recommendation We will recommend to do the ultrasound as recommended by Radiology for the pelvis Stool studies as well as monitor the electrolytes If symptoms persist may need further evaluations including repeat CT with contrast as well as endoscopic workup Time being we will recommend symptomatic treatment and see Follow Liver enzymes also closely Thank you Dr. Gooden Plan discussed with: Patient KAILA GOODEN MD Sep 30, 2024 18:12
[2024-10-01] VITALS (8 sets, daily range): BP systolic 116–136; BP diastolic 55–77; PULSE 48–54; RESP 16–18; TEMP 98.1–98.6; O2SAT 95–100
[2024-10-01 06:52] LABS: Chloride 106 mmol/L (98-107); Sodium 141 mmol/L (136-145)
[2024-10-01 06:53] LABS: Anion Gap 10 (5-15); Calcium 8.7 mg/dL (8.7-10.4); Carbon Dioxide 25 mmol/L (20-31)
[2024-10-01 06:58] LABS: BUN/Creatinine Ratio 8.4 (10.0-20.0); Glucose 91 mg/dL (74-106)
[2024-10-01 06:59] LABS: Basophils # (auto) 0 10 ^3/uL (0-0.2); Basophils % (auto) 0.3 % (0.0-2.0); Eosinophils # (auto) 0 10 ^3/uL (0-0.8); Eosinophils % (auto) 0.5 % (0.0-7.0); Hematocrit 39.4 % (36.0-46.0); Hemoglobin 13.7 g/dL (12.2-16.2); Lymphocytes # (auto) 0.6 10 ^3/uL (0.4-5.4); Lymphocytes % (auto) 24.1 % (10.0-50.0); Mean Corpuscular Hemoglobin 31.2 pg (28.0-32.0); Mean Corpuscular Hgb Conc. 34.8 g/dL (32.0-36.0); Mean Corpuscular Volume 89.7 fL (80.0-100.0); Monocytes # (auto) 0.3 10 ^3/uL (0-1.3); Monocytes % (auto) 13.6 % (0.0-12.0); Neutrophils # (auto) 1.4 10 ^3/uL (1.6-8.6); Neutrophils % (auto) 61.5 % (37.0-80.0); Nucleated Red Blood Cells % 0.2 %; Platelet Count (auto) 193 10^3/uL (140-450); Red Cell Distribution Width 13.5 % (11.8-14.3); White Blood Cell 2.3 10^3/uL (4.4-10.8)
[2024-10-01 07:02] LABS: Blood Urea Nitrogen 7 mg/dL (9-23); Potassium 3.4 mmol/L (3.5-5.1)
--- NOTE | 2024-10-01 10:49 | DVHPN2 ---
Progress Note Date Seen: Oct 01, 2024 Medical Necessity Reason Pt with a Central, PICC or Fol: No Subjective Patient reports: No new complaints Review of Systems: HEENT:Normal, CVS:Normal, RESPIRATORY:Normal, GI:Normal, :Normal, MSK:Normal, NEURO:Normal Objective vital signs Vital Sign Date Time Temp Pulse Resp B/P (MAP) Pulse Ox O2 Delivery O2 Flow Rate FiO2 10/01/24 09:00 98.3 50 16 126/63 (84) 98 98.3 10/01/24 07:30 Room Air* 0 21 Total Intake and Output 09/30/24 09/30/24 10/01/24 15:00 23:00 07:00 Intake Total 1235 ml 940 ml Balance 1235 ml 940 ml medications Current Medications Medications Dose Ordered Sig/Yulia Route Start Time Stop Time Status Last Admin Dose Admin Pantoprazole Sodium 40 mg DAILY IV 09/30/24 10:00 10/01/24 09:32 40 MG Acetaminophen/ Hydrocodone Bitart 1 tab Q4HP PRN PO 09/29/24 19:30 Ondansetron HCl 4 mg Q4HP PRN IV 09/29/24 19:30 10/01/24 04:59 4 MG Acetaminophen 650 mg Q6HP PRN PO 09/29/24 19:30 09/29/24 23:31 650 MG Morphine Sulfate 2 mg Q6HPRN PRN IV 09/29/24 19:30 Sodium Chloride 1,000 ml @ 60 mls/hr [id number] IV 09/30/24 11:00 10/01/24 04:04 60 MLS/HR Examination: GENERAL:Normal, HEENT:Normal, NECK:Normal, LUNGS:Normal, CVS:Normal, ABDOMEN:Normal, MSK:Normal, SKIN:Normal, NEURO:Normal, :Normal laboratory and microbiology Laboratory Tests 10/01/24 06:17 Test 10/01/24 06:17 Range/Units Serum Glucose 91 74-106 mg/dL Microbiology Date/Time Source Procedure Growth Status 09/30/24 06:26 Stool Stool Culture - Preliminary Resulted 09/30/24 06:26 Stool Shiga Toxin I & II - Final Resulted 09/29/24 12:36 Blood Blood Culture - Preliminary NO GROWTH AFTER 24 HOURS OF INCUBATION. 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 #5 hypokalemia: replaced advance care planning- full code- time spent 18 mins Plan discussed with: Patient My Orders My Orders Orders - KOREY HERNANDEZ MD Procedure Category Date Status Time Pelvic US 09/30/24 Resulted 10:59 Clostridium Difficile DEXTER 09/30/24 In Process Toxin 12:31 Sodium Chloride 0.9% PHA 09/30/24 In Process 11:00 Regular Diet DIET 10/01/24 Transmitted Lunch Potassium Er Tablet PHA 10/01/24 Logged (Klor-Con Tablet) 10:45 Basic Metabolic Panel LAB 10/02/24 Verified 06:00 Magnesium LAB 10/02/24 Verified 05:00 Date of Service: Oct 01, 2024 Billing Provider: KOREY HERNANDEZ MD Common Visit Codes: [id number] INP/OBS CARE(HIGH) KOREY HERNANDEZ MD Oct 01, 2024 10:49
[2024-10-01] MEDS: POTASSIUM CHL 20 Meq TABLET PO ONE (12:55)
[2024-10-02 01:00] VITALS: BP 119/67; PULSE 53; RESP 16; TEMP 98.2; O2SAT 97
[2024-10-02 05:00] VITALS: BP 118/61; PULSE 55; RESP 17; TEMP 98; O2SAT 98
[2024-10-02 07:30] VITALS: O2SAT 98
[2024-10-02 07:41] LABS: Anion Gap 10 (5-15); Carbon Dioxide 28 mmol/L (20-31); Potassium 3.5 mmol/L (3.5-5.1)
[2024-10-02 07:42] LABS: Calcium 9.4 mg/dL (8.7-10.4)
[2024-10-02 07:43] LABS: Chloride 109 mmol/L (98-107); Sodium 147 mmol/L (136-145)
[2024-10-02 07:47] LABS: BUN/Creatinine Ratio 9.3 (10.0-20.0); Blood Urea Nitrogen 8 mg/dL (9-23); Glucose 91 mg/dL (74-106)
[2024-10-02 07:48] LABS: Magnesium 1.7 mg/dL (1.6-2.6)
[2024-10-02 09:00] VITALS: BP 135/88; PULSE 46; RESP 18; TEMP 97; O2SAT 98
--- NOTE | 2024-10-02 11:07 | DVHDS2 ---
Discharge Summary Date of Admission Sep 29, 2024 at 19:27 Date of Discharge: Oct 02, 2024 Labs/Diagnostic Data: Laboratory Results Test 10/02/24 06:41 10/01/24 06:17 09/29/24 17:05 09/29/24 14:28 Sodium Level 147 mmol/L (136-145) Potassium Level 3.5 mmol/L (3.5-5.1) Chloride Level 109 mmol/L (98-107) Carbon Dioxide Level 28 mmol/L (20-31) Anion Gap 10 (5-15) Blood Urea Nitrogen 8 mg/dL (9-23) Creatinine 0.86 mg/dL (0.550-1.02) Glomerular Filtration Rate Calc 78 mL/min (>90) BUN/Creatinine Ratio 9.3 (10.0-20.0) Serum Glucose 91 mg/dL (74-106) Calcium Level 9.4 mg/dL (8.7-10.4) Magnesium Level 1.7 mg/dL (1.6-2.6) White Blood Count 2.3 10^3/uL (4.4-10.8) Red Blood Count 4.40 10^6/uL (4.0-5.20) Hemoglobin 13.7 g/dL (12.2-16.2) Hematocrit 39.4 % (36.0-46.0) Mean Corpuscular Volume 89.7 fL (80.0-100.0) Mean Corpuscular Hemoglobin 31.2 pg (28.0-32.0) Mean Corpuscular Hemoglobin Concent 34.8 g/dL (32.0-36.0) Red Cell Distribution Width 13.5 % (11.8-14.3) Platelet Count 193 10^3/uL (140-450) Mean Platelet Volume 9.4 fL (6.9-10.8) Neutrophils (%) (Auto) 61.5 % (37.0-80.0) Lymphocytes (%) (Auto) 24.1 % (10.0-50.0) Monocytes (%) (Auto) 13.6 % (0.0-12.0) Eosinophils (%) (Auto) 0.5 % (0.0-7.0) Basophils (%) (Auto) 0.3 % (0.0-2.0) Neutrophils # (Auto) 1.4 10 ^3/uL (1.6-8.6) Lymphocytes # (Auto) 0.6 10 ^3/uL (0.4-5.4) Monocytes # (Auto) 0.3 10 ^3/uL (0-1.3) Eosinophils # (Auto) 0 10 ^3/uL (0-0.8) Basophils # (Auto) 0 10 ^3/uL (0-0.2) Nucleated Red Blood Cells 0.2 % Urine Color Yellow (Yellow) Urine Clarity Clear (Clear) Urine pH 6.0 (5.0-9.0) Urine Specific [place] 1.015 (1.001-1.035) Urine Protein Trace (Negative) Urine Ketones Negative (Negative) Urine Blood Negative /uL (Negative) Urine Nitrite Negative (Negative) Urine Bilirubin Negative (Negative) Urine Urobilinogen Normal mg/dL (Negative) Urine Leukocyte Esterase Negative /uL (Negative) Urine RBC 1 /hpf (0 - 4) Urine Microscopic WBC 1 /HPF (0-5) Urine Squamous Epithelial Cells Few /hpf (<5) Urine Bacteria Few /hpf (None Seen) Urine Mucus Few (None Seen) Urine Glucose Normal mg/dL (Normal) Lactic Acid Level 0.7 mmol/L (0.4-2.0) Test 09/29/24 13:20 09/29/24 12:06 Troponin I High Sensitivity < 3 ng/L (</=34) Total Bilirubin 0.6 mg/dL (0.2-1.0) Aspartate Amino Transferase (AST) 84 U/L (13-40) Alanine Aminotransferase (ALT) 31 U/L (7-40) Alkaline Phosphatase 48 U/L (46-116) B-Type Natriuretic Peptide 33.57 pg/mL (0-100) Total Protein 7.4 g/dL (5.7-8.2) Albumin 5.0 g/dL (3.2-4.8) Lipase 34 U/L (12-53) Other Laboratory Tests 10/02/24 06:41 10/01/24 06:17 Brief Hx & Hospital Course: see dictated note Condition at Discharge: Fair Final Diagnosis/Problems List acute ge Discharge Disposition: Home Discharge Instruct/Medications Diet: Regular Activity: No Restrictions, As Tolerated Follow Up/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 Patient was counseled about treatment plan, medications, possible side effects, patientverbalized understanding. All questions were answered to the best of my ability. This discharge took greater then 30 minutes in planning, reviewing documentation, counseling the patient, and discussing with other team members." ASSESSMENT ASSESSMENT Assessment acute ge Date of Service: Oct 02, 2024 Billing Provider: KOREY HERNANDEZ MD Common Visit Codes: [id number] DISCH DAY >30min KOREY HERNANDEZ MD Oct 02, 2024 11:07
--- NOTE | 2024-10-02 11:20 | DVHDS ---
DATE OF DISCHARGE: 10/02/2024 HISTORY OF PRESENT ILLNESS: The patient is a 59-year-old lady who is admitted with complaints of abdominal pain, nausea, vomiting, and diarrhea. She has previous history of hypertension. HOSPITAL COURSE: The patient had a CT of abdomen and pelvis that showed evidence of endometrial thickening. A pelvic ultrasound done showed a small amount of debris in the endometrial canal. The patient had stool that showed normal andra. C. diff was unresolved. The patient is now tolerating an oral diet and is doing well. 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 She was seen in GI consult by Dr. Gooden. FINAL DIAGNOSES: * Likely acute gastroenteritis. * Obesity. * Hypertension. * Endometrial thickening with history of HPV. * Hypokalemia. I have also given a copy to the patient of the CAT scan of the abdomen and pelvic ultrasound reports. Time spent in discharge planning and review of plan with the patient and nursing was 37 minutes. MD MIRIAM Calixto/FRANKIE TID: [id number] RECEIPT: [id number]
[2024-10-02 13:27] VITALS: TEMP 36.1
== END 2024-10-02 14:00 | disposition home or self-care (01) | DRG 392 ==
LOC: ER 11:57 → OVERFLOW 19:27 → CENTRAL 22:39
PROVIDERS: ADMIT Internal Medicine; ATTEND Internal Medicine
DX: A08.4 Viral intestinal infection, unspecified (principal); E87.8 Other disorders of electrolyte and fluid balance, not elsewhere classified; E66.9 Obesity, unspecified; R93.89 Abnormal findings on diagnostic imaging of other specified body structures; I10 Essential (primary) hypertension; E87.6 Hypokalemia; F12.90 Cannabis use, unspecified, uncomplicated; Z90.49 Acquired absence of other specified parts of digestive tract; Z68.30 Body mass index [BMI] 30.0-30.9, adult
CPT/HCPCS: 36415; 74176; 76856; 80048; 80053; 81001; 83605; 83690; 83735; 83880; 84484; 85025; 87040; 87045; 87427; 93005; 96365; 96375; G0378; J2405; J2470; J3490